=== PATIENT | male | born 1980 | race Caucasian/White ===

== ENCOUNTER 2022-03-01 18:59 | Emergency (ER) | payer MEDICAID ==
[~2022-03-01] VITALS: Ht 193 cm; Wt 85.3 kg
[2022-03-01 19:15] VITALS: BP 108/59
[2022-03-01] MEDS ORDERED: DOXYCYCLINE 100MG CAPSULE PO STA (19:31)
[2022-03-01] MEDS ORDERED: CEPH250T PO (19:33)
[2022-03-01] MEDS ORDERED: DOXY100C76 PO (19:33)
[2022-03-01] MEDS ORDERED: ceFAZolin 1gm IM kit IM ONE (19:35)
[2022-03-01] MEDS ORDERED: ondansetron 4mg rapidly disintigrating tab PO ONE (19:35)
== END 2022-03-01 19:53 | disposition home or self-care (01) ==
LOC: ER 19:00
DX: L03.311 Cellulitis of abdominal wall (principal); F15.90 Other stimulant use, unspecified, uncomplicated; Z79.2 Long term (current) use of antibiotics
CPT/HCPCS: 96372; 99283; J0690

== ENCOUNTER 2022-04-19 20:55 | Emergency (ER) | payer MEDICAID ==
[~2022-04-19] VITALS: Ht 193 cm; Wt 86.0 kg
[2022-04-20] MEDS ORDERED: CEPH-585 PO (01:09)
[2022-04-20] MEDS ORDERED: SULF1TAB49 PO (01:09)
[2022-04-20] MEDS ORDERED: sulfamethoxazole/trimethoprim DS (800/160mg) tablet PO ONE (01:10)
[2022-04-20] MEDS ORDERED: cephalexin 500mg capsule PO ONE (01:10)
[2022-04-20 01:51] VITALS: BP 117/73
== END 2022-04-20 01:55 | disposition home or self-care (01) ==
LOC: ER 20:55
DX: L02.511 Cutaneous abscess of right hand (principal); F15.10 Other stimulant abuse, uncomplicated; Z79.899 Other long term (current) drug therapy
CPT/HCPCS: 99283

== ENCOUNTER 2025-10-22 11:52 | Emergency (ER) | payer MEDICAID ==
[~2025-10-22] VITALS: Ht 193 cm; Wt 88.2 kg
[2025-10-22 12:08] VITALS: BP 157/72; PULSE 96; RESP 16; TEMP 97.6; O2SAT 99
[2025-10-22] MEDS ORDERED: SULF1TAB49 PO (12:46)
[2025-10-22] MEDS ORDERED: CEPH-585 PO (12:46)
--- NOTE | 2025-10-22 12:46 | Physician Documentation ---
History of Present Illness ~ Chief Complaint: Knee Pain Stated Complaint: STAPH INFECTION Time Seen by MD: 12:13 Primary Medical Doctor: None HPI 44 year old male reports "staph infection" to left knee with redness, swelling, and discharge. Has had cellulitis before. Denies fever, body aches, but reports L groin swelling. Tetanus witin 5 years: Yes Medication Reconciliation Allergies: Coded Allergies: No Known Allergies (Unverified , 10/22/25) Past Medical History Past Medical History: No Pertinent History Past Surgical History: no surgical history Patient History: Patient reports no known family medical history. Alcohol Use: None Drug Use: methamphetamine Lives with: S/O Review of Systems All Other Systems at this time: Reviewed and Negative Physical Exam Vital Signs: RN Vital Signs have been reviewed: Yes, Temperature: 97.6, Source: Temporal, Heart Rate: 96, Respiratory Rate: 16, BP: 157/72, Pulse Oximetry: 99, Weight: 88.200 Oxygen Flow Rate: 0 Physical Exam Gen: no distress HEENT: PERRL, EOMI Pulm: no distress CTAB CV: deferred Abd: deferred MSK: no deformity;L knee with overlying 7cm area of induration, swelling, purulent discharge, no fluctuance Skin: w/d/i Psych: unremarkable Progress Results/Orders Results/Orders Vital Signs 10/22/25 12:08 Temp 97.6 Pulse 96 Resp 16 B/P (MAP) 157/72 Pulse Ox 99 O2 Flow Rate 0 Medical Decision Making Additional information obtaine: family Findings 44 year old male with left knee cellulitis which is draining purulent material. Will Rx Abx and return precautions. General Diff Dx:Considerations: Include: Other Knee Diff Dx:Considerations: Include: Other Ankle Diff Dx:Considerations: Include: Other Foot Diff Dx:Considerations: Include: Other Toe Diff Dx:Considerations: Include: Other Departure Disposition: 01 HOME / SELF CARE / HOMELESS Impression: Primary Impression: Cellulitis Condition: Stable Discharge Instructions: Cellulitis, Adult Referrals: NO PRIMARY CARE PROVIDER (PCP) Prescriptions Cephalexin*Monohydrate* (Keflex*) 500 Mg Capsule 1 CAP PO QID, #40 CAP Prov: ROSIBEL LLOYD MD 10/22/25 Sulfamethoxazole/Trimethoprim (Bactrim Ds Tablet) 800 Mg-160 Mg Tablet 1 TAB PO Q12H for 10 Days, #20 TAB Prov: ROSIBEL LLOYD MD 10/22/25 Education Educated: Patient Educated regarding: diagnosis, treatment, prognosis, need for follow up Signature Scribe Signature: . Attestation: . ROSIBEL LLOYD MD Oct 22, 2025 12:46
[2025-10-22] MEDS: sulfamethoxazole/trimethoprim DS (800/160mg) tablet PO ONE (12:52)
== END 2025-10-22 12:57 | disposition home or self-care (01) ==
LOC: ER 11:53
DX: L03.116 Cellulitis of left lower limb (principal); F15.90 Other stimulant use, unspecified, uncomplicated
CPT/HCPCS: 99283